=== PATIENT | female | born 1930 | race Caucasian/White ===

== ENCOUNTER 2017-08-26 14:19 | Outpatient (CLI) | payer MEDICARE, BC ==
--- NOTE | 2017-08-26 15:17 | RAD ---
ESOPHOGRAM: HISTORY: Dysphagia. FINDINGS: Air contrast and single column barium evaluation of the esophagus shows prominent nonpropulsive terti graeme-type contractions. A 12 mm barium tablet traversed the esophagus without holdup. No hiatal hernia or reflux were visualized. IMPRESSION: 1. No evidence of stricture or obstruction. 2. Presbyesophagus. POS: [facility]
== END 2017-08-26 14:20 | disposition home or self-care (01) ==
LOC: RAD 14:19
PROVIDERS: ATTEND Family Medicine
DX: R13.10 Dysphagia, unspecified (principal); K22.8 Other specified diseases of esophagus; E11.9 Type 2 diabetes mellitus without complications
CPT/HCPCS: 74220; 80053; 81001; 83036; 85025

== ENCOUNTER 2018-04-05 16:04 | Observation (INO) | payer MEDICARE, BC ==
[2018-04-05 16:30] LABS: #Eosinphils 0.2 thou/uL (0.0-0.7); #Lymphocytes 1.7 thou/uL (1.20-3.40); #Monocytes 1.2 thou/uL (0.11-0.59); #Neutrophils 6.3 thou/uL (1.40-6.50); %Basophils 0.5 % (0.0-1.0); %Eosinophils 2.4 % (0.0-10.0); %Lymphocytes 17.7 % (21.0-51.0); %Monocytes 12.8 % (0.0-10.0); %Neutrophils 66.6 % (42.0-75.0); Hemoglobin 9.7 g/dL (12.0-16.0); Mean Corpuscular HGB CONC 31.4 g/dL (32.0-36.0); Mean Corpuscular Hemoglobin 26.4 pg (27.0-31.0); Mean Platelet Volume 7.3 fL (7.4-10.4); Platelet Count 412 thou/uL (130-400); RBC Distribution Width 13.9 % (11.5-14.5); Red Blood Cell (RBC) Count 3.67 mill/uL (4.20-5.40); White Blood Cell (WBC) Count 9.4 thou/uL (4.8-10.8)
[2018-04-05 16:46] LABS: ALT (SGPT) 9 U/L (8-55); AST (SGOT) 18 U/L (5-34); Alkaline Phosphatase 84 U/L (40-150); Anion Gap 13 mmol/L (10-20); BUN (Urea Nitrogen) 22 mg/dL (9.8-20.1); Bilirubin, Total 0.3 mg/dL (0.2-1.2); CK (CPK) 87 U/L (29-168); Calc. Creatinine Clearance 0 mL/min (70-130); Calcium 9.6 mg/dL (7.8-10.44); Carbon Dioxide 25 mmol/L (23-31); Chloride 104 mmol/L (98-107); Estimated GFR-MDRD 31; Globulin 3.5 g/dL (2.4-3.5); Glucose 122 mg/dL (83-110); Lipase 57 U/L (8-78); Potassium 4.4 mmol/L (3.5-5.1); Protein, Total 7.5 g/dL (6.0-8.3); Sodium 138 mmol/L (136-145)
[2018-04-05 16:50] LABS: CKMB 1.2 ng/mL (0-6.6); Troponin I Less than 0.010 ng/mL (< 0.028)
--- NOTE | 2018-04-05 16:54 | RAD ---
PORTABLE AP CHEST X-RAY 04/05/18 HISTORY: Chest pain for three days. Worse when taking a deep breath. COMPARISON: 09/29/13. FINDINGS: The cardiac silhouette is magnified by projection but does appear mildly enlarged. There is mild line ar scarring versus atelectasis in the left lung base. There is eventration of a portion of the right hemidiaphragm. Calcified granuloma are seen in the lateral left mid lung zone. Lungs are otherwise cl ear. Vascular calcifications are seen in the thoracic aorta. There is osteopenia. No other interval c hange. IMPRESSION: 1. Cardiomegaly. 2. No acute cardiopulmonary process. POS: [facility]
--- NOTE | 2018-04-05 17:51 | CT ---
CT ANGIOGRAM THORAX WITH IV CONTRAST AND 3D RECONSTRUCTIONS: 04/05/18 HISTORY: Chest pain for three days. Worse when taking deep breath. COMPARISON: None available. FINDINGS: Vascular calcifications are seen in the thoracic aorta and coronary arteries. There is irregular athe rosclerotic plaque also seen within the thoracic aorta. Thoracic aorta is normal in caliber without e vidence of an aortic dissection. There is prominent atherosclerotic plaque involving the origin of th e left subclavian artery with mild to moderate narrowing present. No filling defects are seen in the pulmonary arteries to suggest a pulmonary embolus. There is soft tissue density seen in the region of the AP window and extending to the subcarinal and left hilar region of uncertain etiology but may be related to lymphadenopathy. There is a calcificati on in the soft density which extends into the left hilar region between the descending thoracic aorta and the left main pulmonary artery. While some of these findings could be related to prior granuloma tous disease, reactive lymphadenopathy or lymphadenopathy secondary to other etiologies cannot be exc luded. The heart is enlarged. Calcification of mitral valve annulus is present. There are bibasilar linear densities probably related to atelectasis and/or scarring. There is a 4 mm pulmonary nodule right lung apex stable from CT neck on 05/09/11. There is irregular atherosclerotic plaque and calcifications involving the proximal abdominal aorta. There is colonic diverticulosis present. Degenerative changes are seen in the spine. 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 IMPRESSION: 1. Soft tissue density in the mediastinum in the region of the AP window and extending into the left hilar region as described above. Calcification is present in the region of a portion of the soft tissue density, and findings could be related to prior granulomatous disease, but reactive lymphaden opathy or lymphadenopathy secondary to other etiologies cannot be entirely excluded. No prior studies are available to evaluate for stability of this area of soft tissue density. Followup evaluation angel jonathon PET CT scan examination may be helpful for further evaluation. 2. No CT evidence of a pulmonary embolus. 3. Stable right upper lobe pulmonary nodule. 4. Cardiomegaly. 5. Colonic diverticulosis. 6. Prominent atherosclerotic vascular calcifications and plaque in the coronary arteries as well as thoracic and visualized upper abdominal aorta. 1. POS: [facility]
[2018-04-05] MEDS ORDERED: Nitroglycerin 2% Ointment 1 INCH/1 GM Packet ONE (18:15)
[2018-04-05] MEDS ORDERED: Ondansetron HCl/PF 4 MG/2 ML Vial IVP PRN (19:56)
[2018-04-05] MEDS ORDERED: Acetaminophen 325 MG TAB PO PRN (19:56)
[2018-04-05] MEDS ORDERED: Sodium Chloride 0.9% 1,000 ML IV SCH (19:56)
[2018-04-05] MEDS ORDERED: Ondansetron ODT 4 MG TAB SL PRN (19:56)
[2018-04-05 20:33] LABS: Troponin I Less than 0.010 ng/mL (< 0.028)
[2018-04-05] MEDS ORDERED: cloNIDine 0.1 MG TAB PO PRN (20:59)
[2018-04-05] MEDS ORDERED: Famotidine 20 MG TAB PO SCH (21:00)
[2018-04-05] MEDS: Famotidine 20 MG TAB PO SCH (21:26)
[2018-04-05] MEDS: Sodium Chloride 0.9% 1,000 ML IV SCH (21:32)
[2018-04-05 22:44] LABS: Troponin I 0.017 ng/mL (< 0.028)
[2018-04-06 04:43] LABS: Mean Corpuscular HGB CONC 31.2 g/dL (32.0-36.0); Mean Corpuscular Hemoglobin 26.1 pg (27.0-31.0); Mean Corpuscular Volume 83.8 fL (78.0-98.0); Mean Platelet Volume 7.1 fL (7.4-10.4); Platelet Count 399 thou/uL (130-400); RBC Distribution Width 13.8 % (11.5-14.5); Red Blood Cell (RBC) Count 3.46 mill/uL (4.20-5.40); White Blood Cell (WBC) Count 9.3 thou/uL (4.8-10.8)
[2018-04-06 04:45] LABS: Anion Gap 12 mmol/L (10-20); BUN (Urea Nitrogen) 19 mg/dL (9.8-20.1); Band 7 % (5-11); Calc. Creatinine Clearance 74 mL/min (70-130); Calcium 9.6 mg/dL (7.8-10.44); Carbon Dioxide 25 mmol/L (23-31); Chloride 104 mmol/L (98-107); Eosinophils 6 % (0-10); Estimated GFR-MDRD 35; Glucose 122 mg/dL (83-110); Lymphocytes 24 % (21-51); MDiff Complete? YES; Monocytes 11 % (0-10); Neutrophil 52 % (42-75); PLT Morphology Comment Appears Adequate; Potassium 4.4 mmol/L (3.5-5.1); Sodium 137 mmol/L (136-145)
[2018-04-06] MEDS ORDERED: Levothyroxine Sodium 125 MCG TAB PO SCH (06:00)
[2018-04-06 07:21] VITALS: BMI 26.0
[2018-04-06] MEDS ORDERED: metFORMIN 500 MG TAB PO SCH (08:00)
[2018-04-06] MEDS ORDERED: Prevnar 13-Val Conj/PF 0.5 ML SYRINGE IM ONE (09:00)
[2018-04-06] MEDS ORDERED: Clopidogrel Bisulfate 75 MG TAB PO SCH (09:00)
[2018-04-06] MEDS ORDERED: ADENOSINE 60 MG/20 ML VIAL ONE (10:25)
[2018-04-06] MEDS: Famotidine 20 MG TAB PO SCH (12:37)
[2018-04-06] MEDS: Sodium Chloride 0.9% 1,000 ML IV SCH (12:39)
[2018-04-06 12:45] VITALS: BP 149/66; TEMP 98.3
--- NOTE | 2018-04-06 14:22 | NM ---
NUCLEAR MEDICINE CARDIAC PERFUSION EXAMINATION WITH EJECTION FRACTION: HISTORY: An 88-year-old female with chest pain. TECHNIQUE: A single-day nuclear medicine cardiac perfusion examination was performed. Rest images were obtained using 9.3 mCi of Technetium 99m sestamibi. Stress images were obtained using 30.5 mCi of Technetium 99m sestamibi and adenosine. FINDINGS: Tomographic images showed no fixed or reversible perfusion defects. Gated images show normal wall mo tion with an ejection fraction of 69%. EDV is 61 mL. LHR is 0.8. TID is 1.05. IMPRESSION: No evidence of ischemia. POS: [facility]
--- NOTE | 2018-04-06 18:06 | DIS ---
DATE OF ADMISSION: 04/05/2018 DATE OF DISCHARGE: 04/06/2018 ADMITTING DIAGNOSIS: Chest pain. DISCHARGE DIAGNOSES: Chest pain, likely reflux along with mild anemia. HOSPITAL COURSE: The patient is an 88-year-old female, patient of Dr. Alex Ho, who c mandy in the emergency room after acute onset of chest pain with dyspnea. gives an interesting correlation to consumption of food by the day before the start of symptoms that he states was a similar episode several years ago. The patient denies dissociation. She was put in the hospital a nd kept overnight for chest pain rule out. All troponins were negative. She had a D-dimer slightly elevated. CTA was negative for PE. She underwent adenosine Cardiolite stress test this morning on d ay of discharge and the initial reports were all negative. The final image results are still pending . She did have a slight chest discomfort when she was lying down with the last image consistent like ly with reflux. Discharge plan is to go back home, resume all her home meds, to start some Pepcid-AC over the counter twice a day and also start a vitamin once a day. She is to follow up with Dr. Alex Ho later this week.
--- NOTE | 2018-04-06 20:10 | HP ---
DATE OF ADMISSION: 04/05/2018 CHIEF COMPLAINT: Chest pain. HISTORY OF PRESENT ILLNESS: This is an 88-year-old female patient of Dr. Alex Ho who came to the emergency room after acute onset of substernal chest pain with shortness of breath lasti ng more than an hour. Upon arrival in the emergency room, workup showed negative EKG and negative in itial troponin and other cardiac labs, but positive D-dimer. A workup for PE was ensued and negative CT angiogram was a result, so PE was ruled out. She for chest pain rule out. She does have a history of previous TIA for which she is on Plavix. notes that she had eaten at an fo [employer] restaurant the night before the symptoms started and he recalls a similar situation several years ago. The patient denies any such association with the food. PAST MEDICAL HISTORY: Positive for TIA, diabetes, hypothyroidism, hyperlipidemia, hypertension. low vitamin D deficiency. PAST SURGICAL HISTORY: Appendectomy, TAHBSO benign right breast mass lumpectomy. ALLERGIES: HYDROCODONE causes hallucinations. CURRENT MEDICATIONS: She is on metformin 500 b.i.d., Benicar 20 mg daily, Plavix 75 mg daily, Synthr oid 125 mcg daily and also D3 supplement 5000 units daily. SOCIAL HISTORY: She is . No toxic habits. Several children and grandchildren. FAMILY HISTORY: Noncontributory. REVIEW OF SYSTEMS: No fevers or chills. No headache, no troubles chewing or swallowing. No nausea or vomiting. No changes in bowel or bladder habits. No paresis or paresthesias. No suicidal or norberto icidal ideations. No auditory or visual hallucinations. PHYSICAL EXAMINATION: VITAL SIGNS: Stable and afebrile. HEENT: Essentially unremarkable. Anicteric sclerae. NECK: Supple, no JVD, no bruits. LUNGS: Clear to auscultation bilaterally, no rales, rhonchi or wheezes. HEART: S1, S2, with no rubs, murmurs, or gallops. ABDOMEN: Soft, nontender and nondistended. EXTREMITIES: Good palpable pulses in all 4 extremities. GENITOURINARY: Deferred. NEUROLOGIC: Grossly intact, alert and oriented x4. Cranial nerves II-XII are equal and symmetrical. No motor or sensory deficits. LABORATORY AND X-RAY FINDINGS: White count came back is normal range. H and H is slightly low at 9. 7 and 32. The remainder of labs was all within normal limits. EKG shows no ST or T-wave abnormaliti es. PLAN: Overnight chest pain rule out. We will get adenosine Cardiolite before discharge.
--- NOTE | 2018-04-06 20:33 | DIS ---
DATE OF ADMISSION: 04/05/2018 DATE OF DISCHARGE: 04/06/2018 ADMITTING DIAGNOSIS: Chest pain. DISCHARGE DIAGNOSES: Chest pain, likely noncardiac with mild anemia and slight gastroesophageal refl ux. CONSULTATIONS: None. PROCEDURES PERFORMED: Adenosine Cardiolite, initially is negative, final imaging results are still p ending. HOSPITAL COURSE: The patient is an 88-year-old female, patient of Dr. Alex Ho, who c mandy to the emergency room after acute onset substernal chest pain or shortness of breath lasting more than an hour. Workup in the ER was negative except for a positive D-dimer and a CTA was done, which was also negative for PE. All her cardiac EKG and cardiac labs were all negative. She was put in o vernight for chest pain rule out her history of a TIA. All the troponins were negative. Her h emoglobin, however, came back initially as 9.7 and then 9.0. Cardiolite was initially read as negati ve. Final images are still pending at this time. The patient did have some shortness of breath and little discomfort when she was lying down flat on the last image. Discharge plan is to go home, resume all regular meds and to add in a vitamin for the iron d eficiency anemia as well as an [id number] Pepcid-AC twice a day for the reflux, and she is to f ollow up with Dr. Ho in a week.
== END 2018-04-06 14:07 | disposition home or self-care (01) ==
LOC: ERS 16:04 → 2SW 18:22
PROVIDERS: ADMIT Internal Medicine; ATTEND Internal Medicine
DX: R07.2 Precordial pain (principal); R06.02 Shortness of breath; E11.9 Type 2 diabetes mellitus without complications; E03.9 Hypothyroidism, unspecified; E78.5 Hyperlipidemia, unspecified; I10 Essential (primary) hypertension; E55.9 Vitamin D deficiency, unspecified; D64.9 Anemia, unspecified; K21.9 Gastro-esophageal reflux disease without esophagitis; Z86.73 Personal history of transient ischemic attack (TIA), and cerebral infarction without residual deficits; Z79.84 Long term (current) use of oral hypoglycemic drugs; Z79.02 Long term (current) use of antithrombotics/antiplatelets; Z79.899 Other long term (current) drug therapy; Z88.5 Allergy status to narcotic agent
CPT/HCPCS: 71045; 71275; 78452; 80048; 80053; 82550; 82553; 82962; 83690; 83880; 84484 ×2; 85025 ×2; 85379; 93005; 93017; 96360; 96361 ×2; 99285; A9500; G0378 ×2; 36415; 36416; A4216; J0153

== ENCOUNTER 2020-05-14 20:52 | Emergency (ER) | payer MEDICARE, BC ==
--- NOTE | 2020-05-14 22:17 | RAD ---
Chest AP view INDICATION: Fever, chills and bodyaches COMPARISON: Chest radiograph dated April 05, 2018 FINDINGS: Lungs: There are stable calcified granuloma in the left upper lobe. Chronic lung changes are stable. Cardiac silhouette: [id number] cardiomegaly is stable. Pulmonary vasculature: Normal Pleural spaces: No pleural effusion or pneumothorax is demonstrated. Upper abdomen: No abnormality seen. Osseous structures: No acute osseous abnormality. Additional findings: None. IMPRESSION: No acute cardiopulmonary abnormality.
[2020-05-14 22:51] LABS: Hemoglobin 11.7 g/dL (12.0-16.0); Mean Corpuscular HGB CONC 32.4 g/dL (32.0-36.0); Mean Corpuscular Hemoglobin 29.9 pg (27.0-31.0); Mean Corpuscular Volume 92.3 fL (78.0-98.0); Mean Platelet Volume 7.5 fL (7.4-10.4); Platelet Count 250 thou/uL (130-400); RBC Distribution Width 12.1 % (11.5-14.5); Red Blood Cell (RBC) Count 3.92 mill/uL (4.20-5.40)
[2020-05-14 22:52] LABS: Bacteria/HPF None Seen HPF (None Seen); Bilirubin Negative (Negative); Blood, Urine Negative (Negative); Clarity Clear (Clear); Glucose, Urine (Dipstick) Normal (Negative); Ketone, Urine Negative (Negative); Leukocyte 25 Leu/uL (Negative); Nitrite Negative (Negative); Protein, Urine (Dipstick) Negative (Neg-Trace); RBC/HPF 0-3 HPF (0-3); Specific Gravity, Urine 1.015 (1.002-1.036); Squamous Epithelial 0-3 HPF (0-3); Urobilinogen Normal mg/dL (Less than 2); WBC/HPF 0-3 HPF (0-3); pH, Urine 5.5 (5.0-9.0)
[2020-05-14 23:09] LABS: ALT (SGPT) 8 U/L (8-55); AST (SGOT) 17 U/L (5-34); Albumin 3.9 g/dL (3.4-4.8); Alkaline Phosphatase 68 U/L (40-110); Anion Gap 13 mmol/L (10-20); BUN (Urea Nitrogen) 22 mg/dL (9.8-20.1); Bilirubin, Total Less than 0.2 mg/dL (0.2-1.2); Calc. Creatinine Clearance 0 mL/min (70-130); Calcium 9.4 mg/dL (7.8-10.44); Carbon Dioxide 27 mmol/L (23-31); Chloride 106 mmol/L (98-107); Estimated GFR-MDRD 29; Globulin 2.9 g/dL (2.4-3.5); Glucose 162 mg/dL (83-110); Potassium 4.4 mmol/L (3.5-5.1); Protein, Total 6.8 g/dL (6.0-8.3); Sodium 142 mmol/L (136-145)
[2020-05-14 23:11] LABS: Band 2 % (5-11); Eosinophils 6 % (0-10); Lymphocytes 17 % (21-51); MDiff Complete? YES; Monocytes 18 % (0-10); Neutrophil 57 % (42-75); Platelet Morphology Comment Appears Adequate; RBC Morphology Normal
[2020-05-16 12:57] LABS: SARS-CoV-2 MS2 Positive; SARS-CoV-2 N Gene Positive; SARS-CoV-2 S Gene Positive; SARS-CoV-2 by NAA DETECTED (NotDetected); SARS-CoV-2 orf1ab Positive
== END 2020-05-15 00:25 | disposition home or self-care (01) ==
LOC: ERS 20:52
DX: U07.1 COVID-19 (principal); E03.9 Hypothyroidism, unspecified; E11.9 Type 2 diabetes mellitus without complications; E78.5 Hyperlipidemia, unspecified; I10 Essential (primary) hypertension; Z79.899 Other long term (current) drug therapy
CPT/HCPCS: 71045; 80053; 85025; 87804 ×2; 99284; U0003; 36415; 81003; 81015; 87635

== ENCOUNTER 2021-01-01 18:41 | Emergency (ER) | payer MEDICARE, OTHER ==
[2021-01-01] MEDS ORDERED: Metoclopramide HCl 10 MG/2 ML VIAL ONE (19:55)
[2021-01-01] MEDS ORDERED: diphenhydrAMINE 50 MG/ML VIAL ONE (19:55)
[2021-01-01 20:08] LABS: Bilirubin Negative (Negative); Blood, Urine Negative (Negative); Clarity Clear (Clear); Glucose, Urine (Dipstick) Normal (Negative); Ketone, Urine Negative (Negative); Leukocyte Negative Leu/uL (Negative); Nitrite Negative (Negative); Protein, Urine (Dipstick) Negative (Neg-Trace); Specific Gravity, Urine 1.012 (1.002-1.036); Urobilinogen Normal mg/dL (Less than 2); pH, Urine 6.5 (5.0-9.0)
[2021-01-01 20:11] LABS: #Eosinphils 0.4 thou/uL (0.0-0.7); #Lymphocytes 1.8 thou/uL (1.20-3.40); #Monocytes 0.8 thou/uL (0.11-0.59); #Neutrophils 4.9 thou/uL (1.40-6.50); %Basophils 0.5 % (0.0-1.0); %Eosinophils 5.4 % (0.0-10.0); %Lymphocytes 22.7 % (21.0-51.0); %Neutrophils 61.5 % (42.0-75.0); Hemoglobin 10.6 g/dL (12.0-16.0); Mean Corpuscular HGB CONC 32.6 g/dL (32.0-36.0); Mean Corpuscular Volume 89.2 fL (78.0-98.0); Mean Platelet Volume 7.1 fL (7.4-10.4); Platelet Count 324 thou/uL (130-400); RBC Distribution Width 12.3 % (11.5-14.5); Red Blood Cell (RBC) Count 3.64 mill/uL (4.20-5.40); White Blood Cell (WBC) Count 7.9 thou/uL (4.8-10.8)
[2021-01-01 20:36] LABS: ALT (SGPT) 7 U/L (8-55); AST (SGOT) 15 U/L (5-34); Alkaline Phosphatase 64 U/L (40-110); Anion Gap 15 mmol/L (10-20); BUN (Urea Nitrogen) 23 mg/dL (9.8-20.1); Bilirubin, Total 0.2 mg/dL (0.2-1.2); Calc. Creatinine Clearance 0 mL/min (70-130); Calcium 9.7 mg/dL (7.8-10.44); Carbon Dioxide 25 mmol/L (23-31); Chloride 103 mmol/L (98-107); Globulin 2.9 g/dL (2.4-3.5); Glucose 147 mg/dL (83-110); Potassium 4.8 mmol/L (3.5-5.1); Protein, Total 6.9 g/dL (5.8-8.1); Sodium 138 mmol/L (136-145)
== END 2021-01-01 21:48 | disposition home or self-care (01) ==
LOC: ERS 18:41
DX: M54.2 Cervicalgia (principal); R51.9 Headache, unspecified; E03.9 Hypothyroidism, unspecified; E11.9 Type 2 diabetes mellitus without complications; E78.5 Hyperlipidemia, unspecified; I10 Essential (primary) hypertension; Z79.84 Long term (current) use of oral hypoglycemic drugs; Z79.899 Other long term (current) drug therapy
CPT/HCPCS: 70450; 80053; 81003; 84484; 85025; 93005; 96365; 96375; J1200; J2765

== ENCOUNTER 2021-03-26 19:22 | Emergency (ER) | payer MEDICARE ==
[2021-03-26 21:02] LABS: #Basophils 0.1 thou/uL (0.0-0.2); #Eosinphils 0.4 thou/uL (0.0-0.7); #Lymphocytes 1.9 thou/uL (1.20-3.40); #Monocytes 0.9 thou/uL (0.11-0.59); #Neutrophils 4.9 thou/uL (1.40-6.50); %Basophils 0.7 % (0.0-1.0); %Eosinophils 5.1 % (0.0-10.0); %Lymphocytes 23.4 % (21.0-51.0); %Monocytes 11.4 % (0.0-10.0); %Neutrophils 59.5 % (42.0-75.0); Hemoglobin 8.8 g/dL (12.0-16.0); Mean Corpuscular HGB CONC 31.8 g/dL (32.0-36.0); Mean Corpuscular Hemoglobin 26.7 pg (27.0-31.0); Mean Corpuscular Volume 83.9 fL (78.0-98.0); Mean Platelet Volume 6.9 fL (7.4-10.4); Platelet Count 379 thou/uL (130-400); RBC Distribution Width 13.5 % (11.5-14.5); White Blood Cell (WBC) Count 8.2 thou/uL (4.8-10.8)
[2021-03-26 21:25] LABS: ALT (SGPT) Less than 7 U/L (8-55); AST (SGOT) 12 U/L (5-34); Albumin 3.7 g/dL (3.4-4.8); Alkaline Phosphatase 63 U/L (40-110); Anion Gap 12 mmol/L (10-20); BUN (Urea Nitrogen) 21 mg/dL (9.8-20.1); Bilirubin, Total 0.2 mg/dL (0.2-1.2); Calc. Creatinine Clearance 0 mL/min (70-130); Calcium 9.3 mg/dL (7.8-10.44); Carbon Dioxide 26 mmol/L (23-31); Chloride 107 mmol/L (98-107); Globulin 2.5 g/dL (2.4-3.5); Glucose 126 mg/dL (83-110); Protein, Total 6.2 g/dL (5.8-8.1); Sodium 140 mmol/L (136-145)
[2021-03-26 21:37] LABS: Bilirubin Negative (Negative); Blood, Urine Negative (Negative); Clarity Clear (Clear); Glucose, Urine (Dipstick) Normal (Negative); Ketone, Urine Negative (Negative); Leukocyte Negative Leu/uL (Negative); Nitrite Negative (Negative); Protein, Urine (Dipstick) Negative (Neg-Trace); Specific Gravity, Urine 1.018 (1.002-1.036); Urobilinogen Normal mg/dL (Less than 2); pH, Urine 5.5 (5.0-9.0)
[2021-03-26] MEDS ORDERED: Ciprofloxacin 500 MG TAB ONE (23:14)
[2021-03-26] MEDS ORDERED: metroNIDAZOLE 250 MG TAB ONE (23:14)
== END 2021-03-26 23:30 | disposition home or self-care (01) ==
LOC: ERS 19:22
DX: K57.32 Diverticulitis of large intestine without perforation or abscess without bleeding (principal); E11.40 Type 2 diabetes mellitus with diabetic neuropathy, unspecified; E03.9 Hypothyroidism, unspecified; E78.5 Hyperlipidemia, unspecified; I10 Essential (primary) hypertension; Z79.82 Long term (current) use of aspirin; Z79.899 Other long term (current) drug therapy; Z79.84 Long term (current) use of oral hypoglycemic drugs
CPT/HCPCS: 36415; 51701; 74176; 80053; 81003; 85025

== ENCOUNTER 2021-04-14 13:53 | Inpatient (IN) | payer MEDICARE ==
[2021-04-14 15:31] LABS: #Basophils 0.1 thou/uL (0.0-0.2); #Eosinphils 0.4 thou/uL (0.0-0.7); #Lymphocytes 1.5 thou/uL (1.20-3.40); #Monocytes 1.3 thou/uL (0.11-0.59); #Neutrophils 8.4 thou/uL (1.40-6.50); %Basophils 0.5 % (0.0-1.0); %Eosinophils 3.1 % (0.0-10.0); %Lymphocytes 12.6 % (21.0-51.0); %Monocytes 10.8 % (0.0-10.0); %Neutrophils 72.9 % (42.0-75.0); Hemoglobin 8.3 g/dL (12.0-16.0); Mean Corpuscular HGB CONC 31.7 g/dL (32.0-36.0); Mean Corpuscular Hemoglobin 26.3 pg (27.0-31.0); Mean Corpuscular Volume 82.9 fL (78.0-98.0); Mean Platelet Volume 6.7 fL (7.4-10.4); Platelet Count 493 thou/uL (130-400); RBC Distribution Width 13.9 % (11.5-14.5); Red Blood Cell (RBC) Count 3.16 mill/uL (4.20-5.40); White Blood Cell (WBC) Count 11.5 thou/uL (4.8-10.8)
[2021-04-14 15:52] LABS: ALT (SGPT) Less than 7 U/L (8-55); AST (SGOT) 12 U/L (5-34); Albumin 3.6 g/dL (3.4-4.8); Alkaline Phosphatase 70 U/L (40-110); Anion Gap 10 mmol/L (10-20); BUN (Urea Nitrogen) 25 mg/dL (9.8-20.1); Bilirubin, Total 0.3 mg/dL (0.2-1.2); Calc. Creatinine Clearance 0 mL/min (70-130); Calcium 9.7 mg/dL (7.8-10.44); Carbon Dioxide 27 mmol/L (23-31); Chloride 107 mmol/L (98-107); Globulin 2.9 g/dL (2.4-3.5); Glucose 124 mg/dL (83-110); Lipase 29 U/L (8-78); Potassium 5.1 mmol/L (3.5-5.1); Protein, Total 6.5 g/dL (5.8-8.1); Sodium 139 mmol/L (136-145)
[2021-04-14] MEDS ORDERED: Ondansetron ODT 4 MG TAB SL PRN (21:15)
[2021-04-14] MEDS ORDERED: Ondansetron PF 4 MG/2 ML Vial IVP PRN (21:15)
[2021-04-14] MEDS ORDERED: Sodium Chloride 0.9% 1,000 ML IV SCH (21:15)
[2021-04-15] MEDS ORDERED: Dextrose 50% Abboject 50 ML SYRINGE SLOW IVP PRN (00:12)
[2021-04-15] MEDS ORDERED: Acetaminophen 325 MG TAB PO PRN (00:12)
[2021-04-15] MEDS ORDERED: Acetaminophen 650 MG Suppository PR PRN (00:12)
[2021-04-15] MEDS ORDERED: Dextrose 5% in Water 1,000 ML IV PRN (00:12)
[2021-04-15] MEDS ORDERED: HumaLOG 300 UNITS/3 ML VIAL SC PRN ×2 (00:12)
[2021-04-15] MEDS ORDERED: Piperacillin/Tazobactam 3.375 GM in Sodium Chloride 0.9% 100 ML IVPB SCH ×3 (00:45→05:00)
[2021-04-15 01:24] VITALS: BMI 25.0
[2021-04-15] MEDS: Sodium Chloride 0.9% 1,000 ML IV SCH ×2 (01:54→09:45)
[2021-04-15] MEDS: Enoxaparin Sodium 30 MG/0.3 ML SYRINGE SC SCH (07:40)
[2021-04-15 08:57] LABS: #Eosinphils 0.6 thou/uL (0.0-0.7); #Lymphocytes 1.8 thou/uL (1.20-3.40); #Neutrophils 5.2 thou/uL (1.40-6.50); %Basophils 0.2 % (0.0-1.0); %Lymphocytes 20.6 % (21.0-51.0); %Monocytes 11.8 % (0.0-10.0); %Neutrophils 60.4 % (42.0-75.0); Hemoglobin 7.8 g/dL (12.0-16.0); Mean Corpuscular Hemoglobin 26.3 pg (27.0-31.0); Mean Corpuscular Volume 82.1 fL (78.0-98.0); Mean Platelet Volume 7.2 fL (7.4-10.4); Platelet Count 427 thou/uL (130-400); Red Blood Cell (RBC) Count 2.97 mill/uL (4.20-5.40); White Blood Cell (WBC) Count 8.6 thou/uL (4.8-10.8)
[2021-04-15 09:21] LABS: Iron 17 ug/dL (50-170); Iron Binding Capacity, Total 266 mcg/dL (265-497)
[2021-04-15 09:25] LABS: Anion Gap 13 mmol/L (10-20); BUN (Urea Nitrogen) 20 mg/dL (9.8-20.1); Calc. Creatinine Clearance 27 mL/min (70-130); Calcium 9.3 mg/dL (7.8-10.44); Carbon Dioxide 23 mmol/L (23-31); Chloride 109 mmol/L (98-107); Glucose 97 mg/dL (83-110); Iron 9 ug/dL (50-170); Iron Binding Capacity, Total 270 mcg/dL (265-497); Potassium 4.8 mmol/L (3.5-5.1); Sodium 140 mmol/L (136-145)
[2021-04-15 18:42] LABS: SARS-CoV-2 PCR by NAA Not Detected (NotDetected)
[2021-04-15] MEDS: Piperacillin/Tazobactam 3.375 GM in Sodium Chloride 0.9% 100 ML IVPB SCH (18:49)
[2021-04-15] MEDS: ALPRAZolam 0.25 MG TAB PO SCH (20:33)
[2021-04-16] MEDS: Piperacillin/Tazobactam 3.375 GM in Sodium Chloride 0.9% 100 ML IVPB SCH ×3 (03:14→17:26)
[2021-04-16] MEDS: Sodium Chloride 0.9% 1,000 ML IV SCH ×2 (03:18→15:25)
[2021-04-16] MEDS: Levothyroxine Sodium 125 MCG TAB PO SCH (06:21)
[2021-04-16 07:38] LABS: #Eosinphils 0.4 thou/uL (0.0-0.7); #Lymphocytes 1.4 thou/uL (1.20-3.40); #Neutrophils 4.4 thou/uL (1.40-6.50); %Basophils 0.5 % (0.0-1.0); %Eosinophils 5.6 % (0.0-10.0); %Lymphocytes 19.4 % (21.0-51.0); %Monocytes 13.3 % (0.0-10.0); %Neutrophils 61.2 % (42.0-75.0); Hemoglobin 7.7 g/dL (12.0-16.0); Mean Corpuscular HGB CONC 32.2 g/dL (32.0-36.0); Mean Corpuscular Hemoglobin 26.3 pg (27.0-31.0); Mean Corpuscular Volume 81.7 fL (78.0-98.0); Mean Platelet Volume 6.7 fL (7.4-10.4); Platelet Count 471 thou/uL (130-400); RBC Distribution Width 13.9 % (11.5-14.5); Red Blood Cell (RBC) Count 2.91 mill/uL (4.20-5.40); White Blood Cell (WBC) Count 7.2 thou/uL (4.8-10.8)
[2021-04-16 07:57] LABS: Anion Gap 12 mmol/L (10-20); BUN (Urea Nitrogen) 15 mg/dL (9.8-20.1); Calc. Creatinine Clearance 28 mL/min (70-130); Calcium 9.3 mg/dL (7.8-10.44); Carbon Dioxide 25 mmol/L (23-31); Chloride 110 mmol/L (98-107); Glucose 91 mg/dL (83-110); Potassium 4.5 mmol/L (3.5-5.1); Sodium 142 mmol/L (136-145)
[2021-04-16] MEDS: Enoxaparin Sodium 30 MG/0.3 ML SYRINGE SC SCH (08:11)
[2021-04-16] MEDS: Iron, Sodium Ferric Gluconate 125 MG in Sodium Chloride 0.9% 250 ML 250 ML IVPB SCH (08:32)
[2021-04-16] MEDS: ALPRAZolam 0.25 MG TAB PO SCH (20:37)
[2021-04-16] MEDS ORDERED: LACTINEX 1 TAB PO SCH ×2 (22:15→22:20)
[2021-04-17] MEDS: Piperacillin/Tazobactam 3.375 GM in Sodium Chloride 0.9% 100 ML IVPB SCH ×3 (02:14→21:55)
[2021-04-17] MEDS: Levothyroxine Sodium 125 MCG TAB PO SCH (05:15)
[2021-04-17] MEDS: Sodium Chloride 0.9% 1,000 ML IV SCH (06:10)
[2021-04-17 07:51] LABS: Anion Gap 15 mmol/L (10-20); BUN (Urea Nitrogen) 13 mg/dL (9.8-20.1); Calc. Creatinine Clearance 26 mL/min (70-130); Calcium 9.1 mg/dL (7.8-10.44); Carbon Dioxide 25 mmol/L (23-31); Chloride 108 mmol/L (98-107); Glucose 94 mg/dL (83-110); Potassium 4.5 mmol/L (3.5-5.1); Sodium 143 mmol/L (136-145)
[2021-04-17 08:03] LABS: Hemoglobin 7.5 g/dL (12.0-16.0); Mean Corpuscular HGB CONC 31.4 g/dL (32.0-36.0); Mean Corpuscular Hemoglobin 25.6 pg (27.0-31.0); Mean Corpuscular Volume 81.4 fL (78.0-98.0); Mean Platelet Volume 6.8 fL (7.4-10.4); Platelet Count 462 thou/uL (130-400); RBC Distribution Width 13.7 % (11.5-14.5); Red Blood Cell (RBC) Count 2.92 mill/uL (4.20-5.40); White Blood Cell (WBC) Count 6.1 thou/uL (4.8-10.8)
[2021-04-17 08:52] LABS: Band 1 % (5-11); Eosinophils 6 % (0-10); Hypochromia SLIGHT = 6-15 cells (100X) (0-5/hpf); Lymphocytes 27 % (21-51); MDiff Complete? YES; Monocytes 9 % (0-10); Neutrophil 56 % (42-75); Platelet Morphology Comment Appears Adequate
[2021-04-17] MEDS: Enoxaparin Sodium 30 MG/0.3 ML SYRINGE SC SCH (09:49)
[2021-04-17] MEDS: Iron, Sodium Ferric Gluconate 125 MG in Sodium Chloride 0.9% 250 ML 250 ML IVPB SCH (10:00)
[2021-04-17] MEDS: ALPRAZolam 0.25 MG TAB PO SCH (21:18)
[2021-04-18] MEDS: Piperacillin/Tazobactam 3.375 GM in Sodium Chloride 0.9% 100 ML IVPB SCH ×2 (05:59→14:23)
[2021-04-18] MEDS: Levothyroxine Sodium 125 MCG TAB PO SCH (06:00)
[2021-04-18] MEDS: Enoxaparin Sodium 30 MG/0.3 ML SYRINGE SC SCH (09:05)
[2021-04-18 09:37] LABS: #Eosinphils 0.5 thou/uL (0.0-0.7); #Lymphocytes 1.4 thou/uL (1.20-3.40); #Neutrophils 3.8 thou/uL (1.40-6.50); %Basophils 0.7 % (0.0-1.0); %Eosinophils 6.8 % (0.0-10.0); %Lymphocytes 20.8 % (21.0-51.0); %Monocytes 14.3 % (0.0-10.0); %Neutrophils 57.5 % (42.0-75.0); Hemoglobin 8.1 g/dL (12.0-16.0); Mean Corpuscular HGB CONC 31.4 g/dL (32.0-36.0); Mean Corpuscular Hemoglobin 25.5 pg (27.0-31.0); Mean Corpuscular Volume 81.2 fL (78.0-98.0); Mean Platelet Volume 6.8 fL (7.4-10.4); Platelet Count 512 thou/uL (130-400); RBC Distribution Width 14.2 % (11.5-14.5); Red Blood Cell (RBC) Count 3.17 mill/uL (4.20-5.40); White Blood Cell (WBC) Count 6.7 thou/uL (4.8-10.8)
[2021-04-18 10:25] LABS: Anion Gap 15 mmol/L (10-20); BUN (Urea Nitrogen) 12 mg/dL (9.8-20.1); Calc. Creatinine Clearance 24 mL/min (70-130); Calcium 9.5 mg/dL (7.8-10.44); Carbon Dioxide 25 mmol/L (23-31); Chloride 107 mmol/L (98-107); Glucose 96 mg/dL (83-110); Potassium 4.6 mmol/L (3.5-5.1); Sodium 142 mmol/L (136-145)
[2021-04-18 17:40] VITALS: BP 159/86; TEMP 98.7
[2021-04-18] MEDS ORDERED: FLU VACC QS2021-22(65YR UP)/PF 240 MCG/0.7 ML SYRINGE IM ONE (21:00)
== END 2021-04-18 16:58 | disposition home health service (06) | DRG 392 ==
LOC: ERS 13:53 → T4-B 19:26
PROVIDERS: ADMIT Student in an Organized Health Care Education/Training Program; ATTEND Internal Medicine
DX: K57.32 Diverticulitis of large intestine without perforation or abscess without bleeding (principal); N17.9 Acute kidney failure, unspecified; Z20.822 Contact with and (suspected) exposure to COVID-19; E03.9 Hypothyroidism, unspecified; E11.22 Type 2 diabetes mellitus with diabetic chronic kidney disease; E78.5 Hyperlipidemia, unspecified; N18.9 Chronic kidney disease, unspecified; E11.69 Type 2 diabetes mellitus with other specified complication; I12.9 Hypertensive chronic kidney disease with stage 1 through stage 4 chronic kidney disease, or unspecified chronic kidney disease; D63.1 Anemia in chronic kidney disease; E86.0 Dehydration; D50.9 Iron deficiency anemia, unspecified; Z88.5 Allergy status to narcotic agent; Z79.890 Hormone replacement therapy; Z79.84 Long term (current) use of oral hypoglycemic drugs; Z79.82 Long term (current) use of aspirin; Z79.899 Other long term (current) drug therapy; Z86.73 Personal history of transient ischemic attack (TIA), and cerebral infarction without residual deficits
CPT/HCPCS: 36415; 36416; 74176; 80048; 80053; 82728; 83540; 83550; 83690; 85025; J1650; J2543; J2916; J3490; J7050; U0003; U0005

== ENCOUNTER 2021-04-26 19:46 | Inpatient (IN) | payer MEDICARE ==
[~2021-04-26 19:46] MED LIST: Iopamidol-370 76% 500 ML 1 ML ONE
[2021-04-26 20:59] LABS: Hemoglobin 8.9 g/dL (12.0-16.0); Mean Corpuscular HGB CONC 29.5 g/dL (32.0-36.0); Mean Corpuscular Hemoglobin 24.9 pg (27.0-31.0); Mean Corpuscular Volume 84.3 fL (78.0-98.0); Mean Platelet Volume 7.5 fL (7.4-10.4); Platelet Count 428 thou/uL (130-400); RBC Distribution Width 16.5 % (11.5-14.5); Red Blood Cell (RBC) Count 3.57 mill/uL (4.20-5.40); White Blood Cell (WBC) Count 11.5 thou/uL (4.8-10.8)
[2021-04-26 21:16] LABS: #Eosinphils 0.5 thou/uL (0.0-0.7); #Lymphocytes 1.6 thou/uL (1.20-3.40); #Monocytes 1.4 thou/uL (0.11-0.59); %Basophils 0.3 % (0.0-1.0); %Eosinophils 4.7 % (0.0-10.0); %Lymphocytes 13.7 % (21.0-51.0); %Neutrophils 69.3 % (42.0-75.0)
[2021-04-26 21:39] LABS: ALT (SGPT) Less than 7 U/L (8-55); AST (SGOT) 13 U/L (5-34); Albumin 3.3 g/dL (3.4-4.8); Alkaline Phosphatase 71 U/L (40-110); Anion Gap 15 mmol/L (10-20); BUN (Urea Nitrogen) 20 mg/dL (9.8-20.1); Bilirubin, Total 0.2 mg/dL (0.2-1.2); Calc. Creatinine Clearance 0 mL/min (70-130); Calcium 9.2 mg/dL (7.8-10.44); Carbon Dioxide 23 mmol/L (23-31); Chloride 104 mmol/L (98-107); Glucose 120 mg/dL (83-110); Lipase 39 U/L (8-78); Potassium 4.9 mmol/L (3.5-5.1); Protein, Total 6.3 g/dL (5.8-8.1); Sodium 137 mmol/L (136-145)
[2021-04-26] MEDS ORDERED: Morphine 4 MG/ML VIAL ONE (22:30)
[2021-04-27] MEDS ORDERED: Vancomycin 1 GM/200 ML BAG ONE (00:25)
[2021-04-27] MEDS ORDERED: cefTRIAXone\\ROCEPHIN 1 GM VIAL ONE (00:25)
[2021-04-27 00:56] LABS: Bilirubin Negative (Negative); Blood, Urine Negative (Negative); Clarity Clear (Clear); Glucose, Urine (Dipstick) Normal (Negative); Ketone, Urine Negative (Negative); Leukocyte 75 Leu/uL (Negative); Nitrite Negative (Negative); Protein, Urine (Dipstick) 10 mg/dL (Neg-Trace); RBC/HPF None Seen HPF (0-3); Specific Gravity, Urine 1.015 (1.002-1.036); Squamous Epithelial 0-3 HPF (0-3); Urobilinogen Normal mg/dL (Less than 2); WBC/HPF 0-3 HPF (0-3); pH, Urine 5.5 (5.0-9.0)
[2021-04-27 01:01] LABS: Bacteria/HPF Rare-Few HPF (None Seen)
[2021-04-27] MEDS ORDERED: Vancomycin 1 GM in Premix Bag 1 BAG IVPB SCH (04:00)
[2021-04-27] MEDS ORDERED: Acetaminophen 325 MG TAB PO PRN (04:24)
[2021-04-27] MEDS ORDERED: Ondansetron PF 4 MG/2 ML Vial IVP PRN (04:24)
[2021-04-27] MEDS ORDERED: Ondansetron ODT 4 MG TAB PO PRN (04:24)
[2021-04-27] MEDS ORDERED: Acetaminophen 650 MG Suppository PR PRN (04:24)
[2021-04-27] MEDS ORDERED: Morphine 4 MG/ML VIAL SLOW IVP PRN (04:38)
[2021-04-27 05:59] LABS: Hemoglobin 7.5 g/dL (12.0-16.0); Mean Corpuscular HGB CONC 30.5 g/dL (32.0-36.0); Mean Corpuscular Volume 85.1 fL (78.0-98.0); Mean Platelet Volume 7.4 fL (7.4-10.4); Platelet Count 342 thou/uL (130-400); RBC Distribution Width 16.4 % (11.5-14.5); Red Blood Cell (RBC) Count 2.87 mill/uL (4.20-5.40); White Blood Cell (WBC) Count 8.6 thou/uL (4.8-10.8)
[2021-04-27 06:13] LABS: Anion Gap 13 mmol/L (10-20); BUN (Urea Nitrogen) 19 mg/dL (9.8-20.1); Calc. Creatinine Clearance 30 mL/min (70-130); Carbon Dioxide 25 mmol/L (23-31); Chloride 107 mmol/L (98-107); Glucose 115 mg/dL (83-110); Potassium 4.5 mmol/L (3.5-5.1); Sodium 140 mmol/L (136-145)
[2021-04-27 06:27] LABS: Band 1 % (5-11); Eosinophils 4 % (0-10); Lymphocytes 25 % (21-51); MDiff Complete? YES; Monocytes 9 % (0-10); Neutrophil 60 % (42-75); Reactive Lymphocytes 1 % (0-10)
[2021-04-27] MEDS ORDERED: Bacteriostatic Water 30 ML VIAL FS PRN (06:45)
[2021-04-27] MEDS ORDERED: methylPREDNISolone Sod Succ 40 MG VIAL IVP SCH (06:45)
[2021-04-27] MEDS: Enoxaparin Sodium 30 MG/0.3 ML SYRINGE SC SCH (09:17)
[2021-04-27] MEDS ORDERED: Famotidine 20 MG TAB PO PRN (09:41)
[2021-04-27] MEDS ORDERED: Dextrose 5% in Water 1,000 ML IV PRN (09:44)
[2021-04-27] MEDS ORDERED: Dextrose 50% Abboject 50 ML SYRINGE SLOW IVP PRN (09:44)
[2021-04-27 11:08] VITALS: BMI 25.5
[2021-04-27] MEDS ORDERED: Cefepime 2 GM in Sodium Chloride 0.9% 100 ML IVPB SCH (12:00)
[2021-04-27] MEDS ORDERED: cefTRIAXone\\ROCEPHIN 1 GM in Sodium Chloride 0.9% 100 ML IVPB SCH (12:00)
[2021-04-27 12:21] LABS: SARS-CoV-2 PCR by NAA Not Detected (NotDetected)
[2021-04-27 13:10] LABS: CCP IgG Antibody 1.3 EliAU/mL (<7 Negative); EliA RAS New Method **** NEW METHOD ****; Rheumatoid Factor IgA Antibody 3.9 IU/mL (<14 Negative); Rheumatoid Factor IgM Antibody Less than 0.5 IU/mL (<3.5 Negative)
[2021-04-27] MEDS: HumaLOG 300 UNITS/3 ML VIAL SC PRN ×2 (17:55→20:40)
[2021-04-27] MEDS: Colchicine 0.6 MG TAB PO SCH (20:31)
[2021-04-28] MEDS ORDERED: ALPRAZolam 0.25 MG TAB PO SCH (00:15)
[2021-04-28] MEDS: ALPRAZolam 0.25 MG TAB PO SCH ×2 (00:18→20:46)
[2021-04-28] MEDS ORDERED: VANCOMYCIN 1.25 GM/250 ML BAG 1.25 GM in Premix Bag 1 BAG IVPB SCH (03:00)
[2021-04-28 04:22] LABS: Vancomycin, Random 5.5 ug/mL (See Comment)
[2021-04-28] MEDS: Levothyroxine Sodium 125 MCG TAB PO SCH (06:03)
[2021-04-28] MEDS ORDERED: methylPREDNISolone Sod Succ 40 MG VIAL IVP SCH (09:00)
[2021-04-28] MEDS: Aspirin 81 mg Enteric Coated Tablet PO SCH (09:28)
[2021-04-28] MEDS: Enoxaparin Sodium 30 MG/0.3 ML SYRINGE SC SCH (09:29)
[2021-04-28] MEDS: Clopidogrel Bisulfate 75 MG TAB PO SCH (09:29)
[2021-04-28] MEDS ORDERED: PROPOFOL 200 MG/20 ML VIAL ONE (10:12)
[2021-04-28] MEDS: metFORMIN 500 MG TAB PO SCH (17:10)
[2021-04-28] MEDS: HumaLOG 300 UNITS/3 ML VIAL SC PRN (17:10)
[2021-04-28] MEDS: Colchicine 0.6 MG TAB PO SCH (20:46)
[2021-04-28] MEDS: hydrALAZINE 20 MG/ML VIAL SLOW IVP PRN (21:45)
[2021-04-29] MEDS: Levothyroxine Sodium 125 MCG TAB PO SCH (05:45)
[2021-04-29 07:03] LABS: Anion Gap 15 mmol/L (10-20); BUN (Urea Nitrogen) 25 mg/dL (9.8-20.1); Calc. Creatinine Clearance 25 mL/min (70-130); Calcium 9.5 mg/dL (7.8-10.44); Carbon Dioxide 27 mmol/L (23-31); Chloride 106 mmol/L (98-107); Glucose 112 mg/dL (83-110); Potassium 4.5 mmol/L (3.5-5.1); Sodium 143 mmol/L (136-145)
[2021-04-29] MEDS: metFORMIN 500 MG TAB PO SCH (08:39)
[2021-04-29] MEDS: Aspirin 81 mg Enteric Coated Tablet PO SCH (08:39)
[2021-04-29] MEDS: Enoxaparin Sodium 30 MG/0.3 ML SYRINGE SC SCH (08:39)
[2021-04-29] MEDS: Clopidogrel Bisulfate 75 MG TAB PO SCH (08:39)
[2021-04-29] MEDS ORDERED: Losartan 25 MG TAB PO SCH (09:00)
[2021-04-29] MEDS: HumaLOG 300 UNITS/3 ML VIAL SC PRN (12:06)
[2021-04-29] MEDS: hydrALAZINE 20 MG/ML VIAL SLOW IVP PRN (13:02)
[2021-04-29 16:02] VITALS: BP 133/68; TEMP 98.1
[2021-04-30] MEDS ORDERED: FLU VACC QS2021-22(65YR UP)/PF 240 MCG/0.7 ML SYRINGE IM ONE (09:00)
== END 2021-04-29 16:11 | disposition home or self-care (01) | DRG 554 ==
LOC: ERS 19:46 → T4-B 23:32 → OBSVTOIN 04-28 09:36
PROVIDERS: ADMIT Student in an Organized Health Care Education/Training Program; ATTEND Internal Medicine
PROC: 0DB78ZX Excision of Stomach, Pylorus, Via Natural or Artificial Opening Endoscopic, Diagnostic (ICD-10-PCS; principal; 2021-04-28)
DX: M13.0 Polyarthritis, unspecified (principal); K57.32 Diverticulitis of large intestine without perforation or abscess without bleeding; Z20.822 Contact with and (suspected) exposure to COVID-19; M10.39 Gout due to renal impairment, multiple sites; E78.5 Hyperlipidemia, unspecified; D50.9 Iron deficiency anemia, unspecified; K29.70 Gastritis, unspecified, without bleeding; K52.9 Noninfective gastroenteritis and colitis, unspecified; N18.30 Chronic kidney disease, stage 3 unspecified; E11.22 Type 2 diabetes mellitus with diabetic chronic kidney disease; I12.9 Hypertensive chronic kidney disease with stage 1 through stage 4 chronic kidney disease, or unspecified chronic kidney disease; I34.0 Nonrheumatic mitral (valve) insufficiency; E03.9 Hypothyroidism, unspecified; Z86.73 Personal history of transient ischemic attack (TIA), and cerebral infarction without residual deficits; Z88.6 Allergy status to analgesic agent; Z79.899 Other long term (current) drug therapy; Z79.02 Long term (current) use of antithrombotics/antiplatelets; Z79.890 Hormone replacement therapy; Z79.84 Long term (current) use of oral hypoglycemic drugs; Z79.82 Long term (current) use of aspirin; Z90.49 Acquired absence of other specified parts of digestive tract; Z90.710 Acquired absence of both cervix and uterus
CPT/HCPCS: 36415; 36416; 71045; 74177; 80048; 80053; 80202; 81003; 81015; 83036; 83520; 83605; 83690; 84443; 84484; 84550; 85025; 85652; 86140; 86200; 87040; 93005; 93306; 96372; 96375; G0378; J0360; J0692; J0696; J1650; J1815; J2270; J2704; J2920; J3370; J3490; Q9967; U0003; U0005